=== PATIENT | female | born 1975 | race Caucasian/White ===

== ENCOUNTER → 2016-09-23 | Outpatient (CLI) | payer OTHER ==
[~2016-09-23] MED LIST: BLACK COHOSH PO; MULT-726 PO
--- NOTE | 2016-09-23 13:16 | DIAGNOSTIC IMAGING REPORT ---
RIGHT KNEE 4 OR MORE HISTORY: 41 years Female RIGHT KNEE PAIN Right COMPARISON: None available TECHNIQUE: Frontal, lateral, tunnel and sunrise views of the right knee. FINDINGS: Mild tricompartmental osteoarthritis is present, most pronounced within the patellofemoral joint. 3 mm subchondral lucency of the mid patella seen on the lateral view suggests subchondral cyst or osteochondral defect. There is no acute fracture or dislocation identified. No intra-articular loose body. No large joint effusion. IMPRESSION: 1. No acute fracture or dislocation. 2. Mild tricompartmental osteoarthritis, most pronounced within the patellofemoral joint where there is a small suggested subchondral cyst or osteochondral defect. The above report was generated using voice recognition software. It may contain grammatical, syntax or spelling errors. Electronically signed by: Suman Garnica M.D. 09/23/2016 1:15 PM Dictated Date/Time: 09/23/2016 1:13 PM
== END | disposition home or self-care (01) ==
LOC: C.RDSM 13:00
PROVIDERS: ATTEND Physician Assistant
DX: M17.11 Unilateral primary osteoarthritis, right knee (principal)

== ENCOUNTER → 2016-09-30 | Outpatient (CLI) | payer OTHER ==
--- NOTE | 2016-09-30 14:04 | DIAGNOSTIC IMAGING REPORT ---
RIGHT KNEE 4 VIEWS CLINICAL HISTORY: Right knee pain. FINDINGS: AP, crosstable lateral, sunrise, and tunnel views of the right knee are compared to study dated 09/23/2016. The skeletal structures are well mineralized. No fracture is seen. There is mild tricompartmental degenerative joint space narrowing. This is greatest at the patellofemoral articulation. No osteochondral defect is seen on the tunnel image. Tiny lateral marginal osteophytes are observed and there are patellar enthesophytes. A calcified fabella is incidentally noted. No joint effusion is identified. Mild prepatellar soft tissue swelling is noted. IMPRESSION: No acute bony abnormality is seen in the right knee. Electronically signed by: Seferino Ann M.D. 09/30/2016 2:03 PM Dictated Date/Time: 09/30/2016 1:54 PM
== END | disposition home or self-care (01) ==
LOC: C.RDSM 13:51
PROVIDERS: ATTEND Physician Assistant
DX: S82.134D Nondisplaced fracture of medial condyle of right tibia, subsequent encounter for closed fracture with routine healing (principal); X58.XXXA Exposure to other specified factors, initial encounter

== ENCOUNTER → 2016-11-17 | Outpatient (CLI) | payer OTHER ==
--- NOTE | 2016-11-17 10:11 | DIAGNOSTIC IMAGING REPORT ---
MRI OF THE RIGHT KNEE WITHOUT CONTRAST CLINICAL HISTORY: Right knee pain following injury. Medial jointline tenderness. COMPARISON STUDY: Right knee radiographs September 30, 2016. TECHNIQUE: Utilizing a 1.5 Suri magnet and dedicated coil, multiplanar, multiecho imaging of the right knee was performed without intravenous or intraarticular contrast. FINDINGS: Alignment of the right knee is anatomic. Extensor mechanism is intact. There is a small joint effusion. No intra-articular joint bodies present. There is mild thickening of the medial plica. There is severe chondrosis of the lateral patellar cartilage and moderate chondrosis of the medial patellar cartilage. There is mild chondrosis within the trochlear cartilage. There is mild chondrosis within the medial and lateral compartments with no additional sites of high-grade chondrosis. A few subchondral cystic foci within the medial femoral condyle are noted. There are no suspicious osseous lesions. There is minimal increased signal adjacent to the proximal medial collateral ligament. This suggests a grade I MCL sprain. The anterior and posterior cruciate ligaments are intact. Lateral collateral ligament complex is intact. There is no mass or fluid collection adjacent to the right knee. No meniscal tear is identified. There is intrasubstance signal within the posterior horn and body of medial meniscus without definite extension to articular surface. IMPRESSION: 1. Severe chondrosis of the patellar cartilage, greater laterally. Mild chondrosis within the remainder of the right knee. 2. Small right knee joint effusion. Mildly thickened medial plica. 3. Findings suggestive of a grade I MCL sprain. Electronically signed by: Eric Denny M.D. 11/17/2016 10:10 AM Dictated Date/Time: 11/17/2016 9:59 AM
== END | disposition home or self-care (01) ==
LOC: C.MRIBC 08:49
PROVIDERS: ATTEND Orthopaedic Surgery Sports Medicine
DX: M94.8X6 Other specified disorders of cartilage, lower leg (principal); M25.461 Effusion, right knee

== ENCOUNTER → 2016-11-21 | Day surgery (SDC) | payer OTHER ==
[2016-11-20 15:03] VITALS: Ht 160 cm; Wt 76.4 kg
[~2016-11-21] VITALS: Ht 160 cm; Wt 76.4 kg
[~2016-11-21] MED LIST changes: +ATROPINE SULFATE 0.1 MG/ML 5ML SYR IV PRN; +BUPIVACAINE/EPINEPHRINE 0.5% MPF 1:200,000 30 ML VIAL ONE; +CEFAZOLIN 1000MG/55 ML D5W IV SCH; +DEXAMETHASONE SOD INJ 4 MG/ML VIAL ONE; +EpHEDrine SULFATE INJ 50 MG/ML AMP IV PRN; +EpINEphrine INJ 1MG/ML AMP 1 MG/ML AMP ONE; +FENTANYL CITRATE INJ 50 MCG/1 ML 2 ML VIAL IV PRN; +FENTANYL CITRATE INJ 50 MCG/1 ML 2 ML VIAL ONE; +FLUMAZENIL 0.1 MG/1 ML 10 ML VIAL IV PRN; +HYDROmorphone INJ 2 MG/ML SYR/VIAL IV PRN; +KETOROLAC TROMETHAMINE 30 MG/ML VIAL ONE; +LABETALOL HCL IV 5 MG/ML 20ML IV PRN; +LACTATED RINGER'S 1000ML 1,000 ML IV SCH; +LIDOCAINE HCL 1% 20 ML VIAL ONE; +LIDOCAINE HCL 2% 2 ML VIAL (20MG/ML) ONE; +MEPERIDINE HCL 25 MG/ML CARP IV PRN; +METOCLOPRAMIDE HCL INJ 5 MG/ML 2 ML VIAL IV PRN; +MIDAZOLAM HCL 1 MG/ML 2ML VIAL ONE; +MoRPHine SULFATE 4 MG/ML 1 ML CARP\\VIAL IV PRN; +NALOXONE HCL 0.4 MG/1 ML VIAL/CARP IV PRN; +ONDANSETRON INJ 2 MG/ML 2 ML VIAL IV PRN; +ONDANSETRON INJ 2 MG/ML 2 ML VIAL ONE; +OXYCODONE/ACETAMINOPHEN 5-325 TAB PO PRN; +PATIENT'S ALLERGY INFO NEEDS ENTERED SCH; +PHENYLEPHRINE 100MCG/ML 5ML SYR IV PRN; +PROPOFOL IV EMULSION 10 MG/ML 20 ML VIAL IV ONE; +SODIUM CHLORIDE 0.9% 1000ML 1,000 ML IV SCH
[2016-11-21] MEDS: EpINEphrine HCL INJ 1 MG/ML 5ML SYRINGE ONE ×2 (06:30→13:34)
--- NOTE | 2016-11-21 11:05 | History & Physical Bridge - [place] ---
H&P Re-Evaluation Bridge Note: I have examined the patient, reviewed the History & Physical and in the interval since the performance of the History & Physical I have noted the following changes of clinical significance: No changes noted
--- NOTE | 2016-11-21 12:46 | Discharge Instructions-SurgCtr ---
Discharge Instructions Date of Service Nov 21, 2016. Visit Reason for Visit: Right Knee Medial Plicae And Pateller Chondromalac Discharge Discharge Diagnosis / Problem: right knee arthroscopy, medial plica excision Discharge Goals Goal(s): Decrease discomfort, Improve function, Increase independence Medications Restart Stopped Medication(s): Please begin taking Aspirin 325mg BID x 3 weeks after surgery for DVT prophylaxis Activity Recommendations Activity Limitations: as noted below Lifting Limitations: gradually increase as tolerated Exercise/Sports Limitations: until after follow-up appointment Shower/Bathe: keep incision dry Driving or Machine Use: when cleared by Dr. Boswell/Physical Therap Anesthesia . Post Anesthesia Instructions: If you have had General Anesthesia or IV Sedation: * Do not drive today. * Resume driving when surgeon permits. * Do not make important decisions or sign legal documents today. * Call surgeon for: 1. Temperature elevations greater than 101 degrees F. 2. Uncontrollable pain. 3. Excessive bleeding. 4. Persistent nausea and vomiting. 5. Medication intolerance (nausea, vomiting or rash). * For nausea and vomiting use only clear liquids such as: tea, soda, bouillon until nausea subsides, then gradually increase diet as tolerated. * If you have any concerns or questions, call your surgeon's office. If physician is unavailable and it is an emergency, call 911 or go to the nearest emergency room. . Instructions / Follow-Up Instructions / Follow-Up ps DIET: * Resume previous diet. MEDICATIONS: * Please take your prescriptions as instructed at your pre-op appointment and/ or see medication discharge instructions listed above. * If concerns develop, call your physician's office at . SPECIAL CARE INSTRUCTIONS: * Ice/Elevate as instructed. * Keep dressing clean, dry, intact. * Your surgical extremity may be discolored due to prepping agents used on the skin. A bluish-green tint is a normal variant and should not cause alarm. Call your doctor at [phone] if: * Temperature above 101 degrees * Pain not relieved by pain medicine ordered * There is increased drainage or redness from any incision * You have any unanswered questions, problems or concerns. FOLLOW UP VISIT: * If not already scheduled, please call the office at to schedule a follow-up appointment. Diet Recommendations Home Diet: resume previous diet Procedures Procedures Performed: Right knee arthroscopy, medial plica excision, extensive debridement, partial lateral meniscectomy, chondroplasty, exam under anesthesia Pending Studies Studies pending at discharge: no Medical Emergencies . Who to Call and When: Medical Emergencies: If at any time you feel your situation is an emergency, please call 911 immediately. . Non-Emergent Contact Non-Emergency issues call your: Primary Care Provider . . "Provider Documentation" section prepared by Giorgio Mcwilliams. . [place] Drug Monitoring Program Search Results: no issues identified
--- NOTE | 2016-11-21 13:21 | [facility] Post Operative Brief Note ---
Immediate Operative Summary Operative Date Nov 21, 2016. 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 Orion Boswell Gastrointestinal Technician Surgeon(s) Orion Walton Estimated Blood Loss 2 Findings same Specimens none Drains none Anesthesia general Complication(s) None Disposition Recovery Room / PACU
--- NOTE | 2016-11-21 13:37 | [facility] Operative Report ---
Operative Report Operative Date Nov 21, 2016. 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 2) Chondroplasty Patella. 3) Partial lateral meniscectomy. 4) Exam under anesthesia. Surgeon Dr. Orion Boswell Head Of [employer] Surgeon(s) Orion Walton Estimated Blood Loss 2 Findings The right knee was examined under anesthesia. Range of motion was 0-130. Ligamentous examination exhibited: stable Aby, posterior drawer, varus and valgus stress at 0 & 30 degrees. ARTHROSCOPIC FINDINGS: There was significant synovitis in the suprapatellar pouch. 1) PATELLOFEMORAL JOINT: The articular cartilage of the Patella had diffuse Outerbridge type III and 4 changes in the patella from the medial patellar facet , central ridge, to the lateral patellar facet, with significant flaps. The Trochlea articular cartilage was intact. There was an engaging large/thick medial plica 2) GUTTERS: No loose bodies. 3) MEDIAL COMPARTMENT: The articular cartilage of the femur and Tibia was intact , but soft. The medial meniscus was intact . 4) ACL/PCL: They were both visualized and probed to be intact. 5) LATERAL COMPARTMENT: The lateral compartment was then entered in a figure-of- four position. The femoral articular cartilage was normal with some mild softening and the tibial articular cartilage had some fraying and was soft. The lateral meniscus and had fraying at the posterior horn and apex. Fluids (cc crystalloids) 1200 Specimens none Drains n/a Anesthesia Gen Complication(s) None Disposition Recovery Room / PACU (Stable) Implants n/a Indications This is a 41-year-old female who has clinical and MRI findings consistent with meniscus tear and chondromalacia. I recommended that a right knee arthroscopy be performed with meniscus repair vs debridement, possible chondroplasty versus microfracture. The patient understands the risks of surgery, which include but not limited to: bleeding, infection, re-operation, damage to nerves and arteries , continued knee pain, progression of OA, DVT, and a 2-5% risk of becoming worse after surgery. The patient understands all of these instructions and explanations, all of his questions have been satisfactorily addressed and the patient has elected to proceed. Informed consent was signed. Description of Procedure The patient was taken to the Operating Room and placed in the supine position after general anesthetic was administered. My initials and a multidisciplinary time-out were used to identify the right leg as the correct operative limb. Prior to the incision, 1 gram of intravenous Ancef was given. The right knee was then injected with 20cc of a 50:50 mix of 1% Lidocaine plain and 0.5% Bupivacaine with epinephrine in a sterile fashion using the superolateral portal. The right leg was then prepped and draped in a standard sterile fashion. The anterolateral, anteromedial, and superolateral portals were injected with the 50:50 mixture noted above, for a total of 10cc, in the standard fashion. An anterolateral arthroscopic portal was established with an 11-blade. Next, the arthroscope was introduced into the knee. A diagnostic arthroscopy commenced and both the superolateral and anteromedial portals were established under direct visualization using a spinal needle followed by an 11 blade in the standard fashion. The above findings were observed during the diagnostic arthroscopy. The synovitis and anterior fat pad were debrided as they were encounter with mechanical shaver and Coolcut. The medial plicae was excised with a combination of hand punches, mechanical shaver and Coolcut. The articular cartilage damage was debrided back to stable margins as they were encountered with mechanical shaver. The lateral meniscus tear was evaluated and found to be irreparable and was debrided back to stable margin with mechanical shaver. The knee was copiously irrigated. The arthroscopic instruments were then removed. The portals were closed with 3-0 Prolene in a standard fashion. The wound was dressed with Xeroform gauze, sterile gauze, ABDs, sterile Webril, and a foot to thigh Patrice bandage. The patient was then transferred to the Recovery Room in stable condition. The sponge and needle counts were correct. Post-op Instructions: The patient will be WBAT. The patient may remove the operative dressing on Post -Op Day #2 and apply Band-Aids to the wounds. The patient may shower in 72 hours and is to wear the FLYNN for 2 weeks on the operative limb. The patient is to use the pain medicine as needed and take the ASA for 2 weeks. The patient was also given a handout for home quad strengthening and seated self-assisted ROM exercises, which they may begin tomorrow. The patient was given a prescription for PT and is scheduled for an appointment later this week. The patient is to follow up with me in 10-15 days. I attest to the content of the Intraoperative Record and any orders documented therein. Any exceptions are noted below.
--- NOTE | 2016-11-21 14:09 | Anesthesia Progress Nt - [facility] ---
Anesthesia Post Op Note Date & Time Nov 21, 2016 at 14:09 Vital Signs Pain Intensity: 0 Vital Signs Past 12 Hours Date Time Temp Pulse Resp B/P (MAP) Pulse Ox O2 Delivery O2 Flow Rate FiO2 11/21/16 14:01 36.4 11/21/16 14:00 116/80 (88) 11/21/16 13:58 78 13 11/21/16 13:58 79 13 94 11/21/16 13:55 112/80 (84) 11/21/16 13:53 Room Air 11/21/16 13:53 81 16 11/21/16 13:53 80 16 93 11/21/16 13:51 109/86 (90) 11/21/16 13:48 79 14 96 11/21/16 13:48 80 14 11/21/16 13:46 117/73 (81) 11/21/16 13:43 88 22 11/21/16 13:43 88 22 96 11/21/16 13:40 107/75 (86) 11/21/16 13:38 83 20 11/21/16 13:38 84 20 94 11/21/16 13:36 108/75 (80) 11/21/16 13:33 36.3 83 16 108/75 94 Diffusion Mask 5 11/21/16 09:10 36.7 83 22 113/78 (90) 99 Room Air Notes Mental Status: alert / awake / arousable, participated in evaluation Pt Amnestic to Procedure: Yes Nausea / Vomiting: adequately controlled Pain: adequately controlled Airway Patency, RR, SpO2: stable & adequate BP & HR: stable & adequate Hydration State: stable & adequate Anesthetic Complications: no major complications apparent
[2016-11-21 14:37] VITALS: BP 121/76; PULSE 75; TEMP 36.4; O2SAT 99
== END | disposition home or self-care (01) ==
LOC: X.SURG 08:54
PROVIDERS: ATTEND Orthopaedic Surgery Sports Medicine
DX: S83.281A Other tear of lateral meniscus, current injury, right knee, initial encounter (principal); X50.1XXA Overexertion from prolonged static or awkward postures, initial encounter; M94.261 Chondromalacia, right knee; M67.51 Plica syndrome, right knee; M65.861 Other synovitis and tenosynovitis, right lower leg; M25.561 Pain in right knee; F90.9 Attention-deficit hyperactivity disorder, unspecified type; K21.9 Gastro-esophageal reflux disease without esophagitis; F41.8 Other specified anxiety disorders; F17.210 Nicotine dependence, cigarettes, uncomplicated

== ENCOUNTER → 2017-07-09 | Outpatient (CLI) | payer BC, OTHER ==
[~2017-07-09] MED LIST changes: -ATROPINE SULFATE 0.1 MG/ML 5ML SYR IV PRN; -BUPIVACAINE/EPINEPHRINE 0.5% MPF 1:200,000 30 ML VIAL ONE; -CEFAZOLIN 1000MG/55 ML D5W IV SCH; -DEXAMETHASONE SOD INJ 4 MG/ML VIAL ONE; -EpHEDrine SULFATE INJ 50 MG/ML AMP IV PRN; -EpINEphrine INJ 1MG/ML AMP 1 MG/ML AMP ONE; -FENTANYL CITRATE INJ 50 MCG/1 ML 2 ML VIAL IV PRN; -FENTANYL CITRATE INJ 50 MCG/1 ML 2 ML VIAL ONE; -FLUMAZENIL 0.1 MG/1 ML 10 ML VIAL IV PRN; -HYDROmorphone INJ 2 MG/ML SYR/VIAL IV PRN; -KETOROLAC TROMETHAMINE 30 MG/ML VIAL ONE; -LABETALOL HCL IV 5 MG/ML 20ML IV PRN; -LACTATED RINGER'S 1000ML 1,000 ML IV SCH; -LIDOCAINE HCL 1% 20 ML VIAL ONE; -LIDOCAINE HCL 2% 2 ML VIAL (20MG/ML) ONE; -MEPERIDINE HCL 25 MG/ML CARP IV PRN; -METOCLOPRAMIDE HCL INJ 5 MG/ML 2 ML VIAL IV PRN; -MIDAZOLAM HCL 1 MG/ML 2ML VIAL ONE; -MoRPHine SULFATE 4 MG/ML 1 ML CARP\\VIAL IV PRN; -NALOXONE HCL 0.4 MG/1 ML VIAL/CARP IV PRN; -ONDANSETRON INJ 2 MG/ML 2 ML VIAL IV PRN; -ONDANSETRON INJ 2 MG/ML 2 ML VIAL ONE; -OXYCODONE/ACETAMINOPHEN 5-325 TAB PO PRN; -PATIENT'S ALLERGY INFO NEEDS ENTERED SCH; -PHENYLEPHRINE 100MCG/ML 5ML SYR IV PRN; -PROPOFOL IV EMULSION 10 MG/ML 20 ML VIAL IV ONE; -SODIUM CHLORIDE 0.9% 1000ML 1,000 ML IV SCH
== END | disposition home or self-care (01) ==
LOC: C.RDSM 10:18
PROVIDERS: ATTEND Orthopaedic Surgery Sports Medicine
DX: R52 Pain, unspecified (principal)